=== PATIENT | female | born 1980 | race Caucasian/White ===

== ENCOUNTER 2024-02-16 17:57 | Inpatient (IN) | payer BC, SELFPAY ==
[2024-02-16 11:54] VITALS: BP 137/81
[2024-02-16 12:19] LABS: % Basophils 0.5 % (0-2); % Eosinophils 0.4 % (0-6); % Lymphocytes 8.8 % (20.5-51.1); % Monocytes 4.4 % (1.7-9.3); % Neutrophils 84.9 % (42.2-75.2); Absolute Basophils 0.1 10^3/uL (0-0.2); Absolute Eosinophils 0.1 10^3/uL (0-0.7); Absolute Immature Granulocytes 0.1 10^3/uL (0-0.05); Absolute Monocytes 0.5 10^3/uL (0.1-0.6); Absolute Neutrophils 9.9 10^3/uL (1.4-6.5); Hematocrit 43.5 % (37.0-47.0); Hemoglobin 14.9 g/dL (12.0-16.0); Mean Corp Hgb Conc. 34.3 g/dL (33.0-37.0); Mean Corpuscular Hgb 29.3 pg (27.0-31.0); Mean Corpuscular Volume 85.5 fL (81.0-99.0); Nucleated Red Blood Cells % 0 %; Platelet Count 214 10^3/uL (130-400); Red Blood Cell Count 5.09 10^6/uL (4.20-5.40); Red Cell Dist. Width 13.1 % (11.5-14.5); White Blood Cell Count 11.7 10^3/uL (4.8-10.8)
[2024-02-16 12:29] LABS: HCG, Serum Qualitative Screen Negative
[2024-02-16 12:33] LABS: ALT (SGPT) 23 U/L (0-35); AST (SGOT) 23 U/L (14-36); Albumin 4.2 g/dl (3.5-5.0); Alkaline Phosphatase 60 U/L (38-126); Blood Urea Nitrogen 11 mg/dl (7-17); Calcium 8.7 mg/dl (8.4-10.2); Carbon Dioxide 26 mmol/L (22-30); Chloride 97 mmol/L (98-107); Glucose 115 mg/dl (70-99); Lipase 36 U/L (23-300); Potassium 3.5 mmol/L (3.5-5.1); Sodium 133 mmol/L (135-145); Total Bilirubin 0.8 mg/dl (0.2-1.3); eGFR > 60.00
--- NOTE | 2024-02-16 14:17 | EDRN ---
Edgardo GAUTHIER currently at the pts bedside
--- NOTE | 2024-02-16 14:22 | ED.GENMED ---
History of Present Illness
General
Chief Complaint: Rectal Bleeding
Time Seen by Provider: 02/16/24 14:15
History of Present Illness
History of Present Illness:
43-year-old female presents to the emergency department for evaluation of nausea, vomiting, and diarrhea for the past 3 days. States that over the past 24 hours her diarrhea has been essentially 'all blood' estimates that she is going approximately
every 30 to 45 minutes. Feels dizzy and lightheaded as well. No fevers or chills at this point. Has abdominal pain prior to bowel movements but no current pain. No prior abdominal surgery. No ill contacts at home. No bleeding issues or blood
thinner use
Past History
Past History
ED Past Medical History: HTN, Hypercholesterolemia and Other (PCOS)
ED Past Surgical History: None
Patient has exhibited threatening behavior?: No
PSI?: No
Review of Systems
Review of Systems
Allergies reviewed?: Yes
All Other Systems: ROS reviewed and negative except as documented in HPI and ROS
Phy Exam
Physical Exam
Physical Exam:
GEN: Well appearing, NAD, WDWN
HEENT: Oral mucosa moist, no scleral icterus
Cardiac: Tachycardic, regular
Lung: No respiratory distress, no tachypnea
Abdomen: Soft, grossly nontender
MSK: No gross deformity or injuries
Skin: Good color, no pallor or jaundice, no rashes
Neuro: AO x3, moves all extremities freely
Psych: Calm, cooperative
Course
Orders/Labs/Results
Orders:
Orders
02/16/24 12:06
Test Result ONCE
02/16/24 12:10
Type And Crossmatch [Type+Screen] Urgent
Complete Blood Count/With Diff Urgent
Comprehensive Metabolic Panel Urgent
HCG, Serum Qualitative Screen Urgent
Lipase Urgent
02/16/24 14:21
CT Abd/pelvis Angio W/wo Iv Urgent
Comment:
Reason For Exam: rectal bleeding
02/16/24 14:22
0.9% Sodium Chloride 1000 ml [Nss] 1,000 ml IV BOLUS
02/16/24 Dinner
NPO
Allow oral meds: Yes
Allow clear liquids: Sips of Clears
02/16/24 15:02
ABO2 Urgent
BBK Wristband Number:
Associate notified that ABO2 has been ordered: [id number]
Date: 02/16/24
Time: 12:23
Juvenile Justice Specialist ID: [id number]
C DIFF [C difficile Antigen & Toxins] Urgent
JERRY Source: Feces/Stool
Specimen Description:
Date Specimen was Collected: 02/16/24
Time Specimen was Collected: 15:01
Stool Culture Urgent
JERRY Source: Feces/Stool
Specimen Description:
Date Specimen was Collected: 02/16/24
Time Specimen was Collected: 15:01
02/16/24 17:31
Admit/Transfer Patient As Directed
Co-Sign Provider:
Level of Care: Inpatient admission
Assign to:: Medical/Surgical
Physician / Group: phill
Diagnosis: acute infectious colitis
Reason for Hospitalization: acute infectious colitis
Expected length of stay greater than two midnights?: Yes
ELOS- Estimated Length of Stay in days: 2
I certify the patient meets the requirements for IP care: Yes
PRN Pain Medication Management As Directed
May give lesser potent ordered pain med per pt: Yes
preference::
Protocol:: Medication orders for pain may be administered in a
manner that supports deferring to patient preference
when the pt is:
- Requesting an ordered lesser potent pain medication.
Least to most potent pain medications are defined
as: acetaminophen < NSAID < tramadol < opioids
(morphine, oxycodone, hydromorphone).
- Requesting a lesser dose of the same medication IF
ORDERED.
- Requesting a less intrusive route of administration
if both routes are prescribed by the provider (PO <
IV).
02/16/24 17:32
Code Status As Directed
Resuscitation Status: Full Code
02/16/24 18:00
Flush (0.9% Sodium Chloride) [Flush (Nss)] See Dose Instructions IV PER PROTOCOL
Piperacillin/Tazo 3.375 Gram [Zosyn] 3.375 gram in 50 ml IV Q6H
02/16/24 18:32
0.9% Sodium Chloride 1000 ml [Nss] 1,000 ml IV 100 mls/hr
Ondansetron Injectable [Zofran] 4 mg IV Q6HPRN PRN
02/16/24 18:32
Activity As Directed
Activity Level: As Tolerated
Pneumatic Compression Sleeves As Directed
Type: Knee high
Vital Signs As Directed
Frequency: Per unit guidelines
DX Deep Vein Thrombosis Video Routine
02/16/24 18:39
Albuterol [ProAIR HFA INHALER] 2 puff INH R Q6HPRN PRN
02/17/24 06:00
Complete Blood Count/With Diff IN AM
Comprehensive Metabolic Panel IN AM
02/17/24 08:00
Escitalopram Oxalate [Lexapro] 20 mg PO DAILY
Loratadine [Claritin] 10 mg PO DAILY
Abnormal Lab Results
02/16/24
12:10
WBC 11.7 H 10^3/uL
(4.8-10.8)
Abs Immat Gran (auto) 0.1 H 10^3/uL
(0-0.05)
Absolute Neuts (auto) 9.9 H 10^3/uL
(1.4-6.5)
Absolute Lymphs (auto) 1.0 L 10^3/uL
(1.2-3.4)
Immature Gran % 1.0 H %
(0-0.5)
Neutrophils % 84.9 H %
(42.2-75.2)
Lymphocytes % 8.8 L %
(20.5-51.1)
Sodium 133 L mmol/L
(135-145)
Chloride 97 L mmol/L
(98-107)
Glucose 115 H mg/dl
(70-99)
02/16/24 12:10
02/16/24 12:10
Vital Signs
Initial and Last Documented VS:
Initial Vital Signs
Temp Pulse Resp BP Pulse Ox
98 F 108 18 137/81 96
02/16/24 11:54 02/16/24 11:54 02/16/24 11:54 02/16/24 11:54 02/16/24 11:54
Last Documented Vital Signs
Temp Pulse Resp BP Pulse Ox
98.5 F 84 19 139/84 94
02/16/24 18:43 02/16/24 18:43 02/16/24 18:43 02/16/24 18:43 02/16/24 18:43
MDM/Problems Addressed
MDM/Problems Addressed:
Although the patient is hemodynamically stable and the frequency of her hemorrhagic diarrhea is concerning she may decompensate overnight thus we will admit for further evaluation. Antibiotics not given as we are waiting for stool specimens
*Critical Care Note
Total Time (30-74mins, 75-104mins- exclusive of procedures): Not Applicable
ED Attending Note
-
Portions of this chart may have been created with voice recognition software.� Occasional wrong word or��sound alike� substitutions may have occurred due to the inherent limitations of voice recognition software.
Discharge Plan
Departure
Patient Disposition: Admit
Date of Disposition: 02/16/24
Time of Disposition: 17:08
Presentation/result/management discussed w/ accepting MD/DO: Hospitalist
Discharge Problem:
Acute hemorrhagic colitis
Interventions
Interventions:
*Risk Screen - Suicide Last Done: 02/16/24 12:03
*General Assessment Last Done: 02/16/24 12:03
*Neglect/Abuse Screening Last Done: 02/16/24 12:03
ED- Fall Risk Assessment Last Done: 02/16/24 15:56
*ED COVID-19 Vaccine History Last Done: 02/16/24 19:59
*Nursing Disposition Last Done: 02/16/24 18:06
BN-Vpnhix-Wqfxrzgaqm Assessment Last Done: 02/16/24 15:56
ED- Cardiac Assessment Last Done: 02/16/24 15:56
ED- Pulmonary Assessment Last Done: 02/16/24 15:56
Discharge Date and Time
Discharge Date/Time: 02/16/24 18:22
[2024-02-16 15:12] VITALS: BP 139/87; BMI 46.6
[2024-02-16] MEDS: NSS 1000 IV ×2 (15:30→20:16)
[2024-02-16 15:56] VITALS: BP 136/72
--- NOTE | 2024-02-16 17:28 | EDRN ---
hospitalist currently at the pts bedside
--- NOTE | 2024-02-16 17:33 | HPS.HSE ---
Family Physician
-
Family Physician: Ara Payne PA-C
Chief Complaint
-
diarrhea, vomiting
History of Present Illness
43-year-old female past medical history of hypertension, hypercholesteremia, PCOS, presenting with nausea and vomiting and diarrhea and abdominal pain for the past day. Later in the day yesterday diarrhea has become all blood and she is having such
episodes every 30 to 45 minutes. Feels dizzy and lightheadedness. Denies fevers or chills. She has abdominal pain prior to bowel movements but currently no pain. No sick contacts. Denies eating outside food or travel. Does not use any blood
thinners and denies history of bleeding previously.
Drinks alcohol occasionally. Denies smoking.
Medical History
Past Medical History
Past Medical History: Reports Other ( hypertension, hypercholesteremia, PCOS)
Past Surgical History: Reports None
Social History
Tobacco: Non-smoker
Alcohol: Occasional
Drug: None
Family History
Family History: Not pertinent
Allergies / Home Medications
Allergies reflects when Allergies were last updated in [facility].
Home Medications with original date entered in [facility]
Allergy/Medication List:
Allergies
Allergy/AdvReac Type Severity Reaction Status Date / Time
shellfish derived Allergy Hives Verified 02/16/24 12:05
Home Medications
labetalol 100 mg tablet 200 mg PO BID 09/11/21
albuterol sulfate 90 mcg/actuation breath activated powder inhaler,sensor (Proair Digihaler) 2 inh inhalation R Q6HPRN PRN sob 02/16/24
escitalopram oxalate 20 mg tablet 20 mg PO DAILY 02/16/24
loratadine 10 mg tablet 10 mg PO DAILY 02/16/24
Review of Systems
-
History Source: Patient
A 12 point ROS was completed and negative except as noted: Yes
Constitutional: Reports No Symptoms
EENT: Reports No Symptoms
Respiratory: Reports No Symptoms
Cardiac: Reports No Symptoms
Abdomen/GI: Reports See HPI
: Reports No Symptoms
Musculoskeletal: Reports No Symptoms
Skin: Reports No Symptoms
Neurological: Reports No Symptoms
Endocrine: Reports No Symptoms
Hematologic/Lymphatic: Reports No Symptoms
Psych: Reports No Symptoms
Physical Exam
Vital Signs
Vital Signs
Temp Pulse Resp BP Pulse Ox
97.6 F 82 16 136/72 98
02/16/24 15:56 02/16/24 15:56 02/16/24 15:56 02/16/24 15:56 02/16/24 15:56
Physical Exam
General: Well Developed, Well Nourished and No Apparent Distress
HEENT: NormoCephalic, Moist mucous membranes and Atraumatic
Respiratory: Clear
Cardiac: S1/S2 and Regular Rhythm; No Murmur or Rub
GI: Soft, Non Distended, Normal Bowel Sounds and Tender; No Organomegaly
Rectal: Deferred by Provider
Musculoskeletal: No Clubbing, No Cyanosis and No Edema
Skin: No Rash
Neuro: Nonfocal/grossly intact
Laboratory Results
-
02/16/24 12:10
02/16/24 12:10
Laboratory Results
Total Bilirubin 0.8 mg/dl (0.2-1.3) 02/16/24 12:10
AST 23 U/L (14-36) 02/16/24 12:10
ALT 23 U/L (0-35) 02/16/24 12:10
Alkaline Phosphatase 60 U/L (38-126) 02/16/24 12:10
Lipase 36 U/L (23-300) 02/16/24 12:10
Data Reviewed
-
Lab Data: Labs Reviewed by me
Old Records: Reviewed
Impression/Plan
-
IMPRESSION:
PLAN:
# Sepsis (leukocytosis, tachycardia ) secondary to acute infectious colitis with hematochezia
-Hemoglobin 14
-CT abdomen shows long segment colitis of sigmoid colon
-N.p.o.
-IV fluids
-C. difficile negative
-Stool cultures pending
-Zosyn
Essential hypertension
-Hold labetalol
Hypercholesterolemia
PCOS
Anxiety/depression
-Continue Lexapro
Full code
DVT prophylaxis�SCDs
N.p.o.
[2024-02-16 18:43] VITALS: BP 139/84; BMI 45.9
[2024-02-16] MEDS: ZOSYN 50 IV (20:16)
[2024-02-16] MEDS: ZOFRAN 4 MG IV (20:20)
--- NOTE | 2024-02-16 20:30 | PTCARENOTE ---
Pt. received in handoff from day shift RN. This RN completed admission and assessment. Zosyn started and IVF running. PRN zofran dose give. Pt. denies having any pain but continues to have diarrhea. Pt. states no further needs at this time. Care
ongoing.
[2024-02-16 22:26] VITALS: PULSE 95
[2024-02-16 23:00] VITALS: BP 134/75
[2024-02-17] MEDS: ZOSYN 50 IV ×5 (00:09→23:22)
[2024-02-17 06:26] LABS: ALT (SGPT) 23 U/L (0-35); AST (SGOT) 24 U/L (14-36); Albumin 3.3 g/dl (3.5-5.0); Alkaline Phosphatase 48 U/L (38-126); Blood Urea Nitrogen 11 mg/dl (7-17); Carbon Dioxide 23 mmol/L (22-30); Chloride 100 mmol/L (98-107); Estimated Creatinine Clearance > 125 ml/min; Glucose 116 mg/dl (70-99); Hematocrit 37.8 % (37.0-47.0); Hemoglobin 12.5 g/dL (12.0-16.0); Mean Corp Hgb Conc. 33.1 g/dL (33.0-37.0); Mean Corpuscular Hgb 28.3 pg (27.0-31.0); Mean Corpuscular Volume 85.5 fL (81.0-99.0); Mean Platelet Volume 9.5 fL (7.4-10.4); Platelet Count 177 10^3/uL (130-400); Potassium 3.2 mmol/L (3.5-5.1); Red Blood Cell Count 4.42 10^6/uL (4.20-5.40); Sodium 134 mmol/L (135-145); Total Bilirubin 0.6 mg/dl (0.2-1.3); Total Protein 5.9 g/dl (6.3-8.2); White Blood Cell Count 6.1 10^3/uL (4.8-10.8); eGFR > 60.00
--- NOTE | 2024-02-17 06:41 | W.PN.HOSP.TC ---
Today's Communication/Plan
-
IVF support
diet advanced to clear liquid
monitor H&H, electrolytes
bedside commode
Assessment / Plan
Assessment / Plan
Physical Exam
General: Well Developed, Well Nourished and No Apparent Distress
HEENT: NormoCephalic, Moist mucous membranes and Atraumatic
Respiratory: Clear
Cardiac: S1/S2 and Regular Rhythm; No Murmur or Rub
GI: Soft, Non Distended, Normal Bowel Sounds and Tender; No Organomegaly
Musculoskeletal: No Clubbing, No Cyanosis and No Edema
Skin: No Rash
Neuro: Nonfocal/grossly intact
43F HTN, HLD, PCOS, p/w nausea/vomiting/diarrhea/abd pain x1 day. Intermittently noted blood in stools. Dizzy and Lightheadedness. Denied fevers or chills. Abdominal pain prior to bowel movements but currently no pain. No sick contacts. Denies
eating outside food or travel. Does not use any blood thinners and denies history of bleeding previously. Drinks alcohol occasionally. Denies smoking.
# Sepsis (leukocytosis, tachycardia) secondary to acute infectious colitis with hematochezia
-No significant anemia, cont monitoring H&H
-CT abdomen notes long segment colitis of sigmoid colon
-NPO diet advanced to clear liquid
-cont IV fluids for now
-C. difficile negative
-Stool cultures pending
-Zosyn
Essential hypertension
-Hold home labetalol, bp relatively well controlled at this time without
Hypercholesterolemia
PCOS
Anxiety/depression
-Continue Lexapro
Bilateral Adrenal nodules 1.9 cm right 0.9 cm left indeterminate possible lipid poor adenomas
-outpt endocrine follow up recommended
Hypokalemia
-monitor and replete as necessary
Full code
DVT prophylaxis�SCDs
Clear Liquid Diet
I spent a total of 50 minutes with the patient or on the floor. More than 50% of this time involved counseling and coordination of care.
Anticipated Discharge: 24 - 48 hours
Subjective/Interval History
-
Date of Service: February 17, 2024
Diarrhea persists though blood in stools seems to have resolved.
Objective Data
-
Labs:
Laboratory Results
02/17/24
05:43
WBC 6.1
Hgb 12.5
Hct 37.8
Plt Count 177
Sodium 134 L
Potassium 3.2 L
Chloride 100
Carbon Dioxide 23
BUN 11
Creatinine 0.6
Glucose 116 H
Calcium 8.0 L
Total Bilirubin 0.6
AST 24
ALT 23
Alkaline Phosphatase 48
Vital Signs:
Vital Signs
Temp Pulse Resp BP Pulse Ox
97.9 F 101 14 134/75 97
02/16/24 23:00 02/16/24 23:00 02/16/24 23:00 02/16/24 23:00 02/16/24 23:00
[2024-02-17 07:00] VITALS: BP 121/71
[2024-02-17 08:36] LABS: Absolute Neutrophils -Man Diff 4.3 10^3/uL (1.4-6.5); Band Neutrophils 12 % (0-3); Lymphocytes 20 % (20-51); Monocytes 8 % (2-9); Normal RBC Morphology Yes; Platelets Checked Yes; Segmented Neutrophils 60 % (42-75); Total Cells Counted 100
[2024-02-17] MEDS: CLARITIN 10 MG PO (08:39)
[2024-02-17] MEDS: KCL 40 MEQ PO (08:39)
[2024-02-17] MEDS: LEXAPRO 20 MG PO (08:40)
[2024-02-17] MEDS: LR 1000 IV (09:10)
[2024-02-17] MEDS: NSS IV (09:31)
[2024-02-17 13:11] LABS: Phosphorus 3.1 mg/dl (2.5-4.5)
[2024-02-17 15:00] VITALS: BP 132/84
--- NOTE | 2024-02-17 16:24 | CM ---
Alert awake oriented patient who lives with her Ronny and son Zaid 1.5 yo who lives in 2 story home with 41 step to enter and 20 steps to bed and bathroom steps to enter.She is independent in driving and in all activities of daily
living.Offered VN she declined.
No adaptive devices
Never had VN/SNF
Pharmacy [facility] [place]
PCP Dr Payne
PLAN Home no needs
--- NOTE | 2024-02-17 16:29 | CM ---
Alert awake oriented patient who lives with her Ronny and son Zaid 1.5 yo who lives in 2 story home with 1 step to enter and 20 steps to bed and bathroom steps to enter.She is independent in driving and in all activities of daily
living.Offered VN she declined.
No adaptive devices
Never had VN/SNF
Pharmacy [facility]
PCP Dr Payne
PLAN Home no needs
[2024-02-17 23:30] VITALS: BP 139/88
[2024-02-18] MEDS: LR 1000 IV ×2 (01:55→13:13)
[2024-02-18] MEDS: ZOSYN 50 IV ×2 (05:41→11:54)
--- NOTE | 2024-02-18 06:33 | W.PN.HOSP.TC ---
Today's Communication/Plan
-
IV abx narrowed to ceftriaxone
replete K
Cont IVF support, LR switched to NS with potassium added
Assessment / Plan
Assessment / Plan
Physical Exam
General: Well Developed, Well Nourished and No Apparent Distress
HEENT: NormoCephalic, Moist mucous membranes and Atraumatic
Respiratory: Clear
Cardiac: S1/S2 and Regular Rhythm; No Murmur or Rub
GI: Soft, Non Distended, Normal Bowel Sounds and Tender; No Organomegaly
Musculoskeletal: No Clubbing, No Cyanosis and No Edema
Skin: No Rash
Neuro: AOx3
43F HTN, HLD, PCOS, p/w nausea/vomiting/diarrhea/abd pain x1 day. Intermittently noted blood in stools. Dizzy and Lightheadedness. Denied fevers or chills. Abdominal pain prior to bowel movements but currently no pain. No sick contacts. Denies
eating outside food or travel. Does not use any blood thinners and denies history of bleeding previously. Drinks alcohol occasionally. Denies smoking.
# Sepsis (leukocytosis, tachycardia) secondary to acute infectious colitis with hematochezia
-No significant anemia, cont monitoring H&H
-CT abdomen notes long segment colitis of sigmoid colon
-NPO diet advanced to clear liquid
-cont IV fluids for now
-C. difficile negative
-Stool cultures appreciated Salmonella
-Zosyn narrowed to Ceftriaxone
Essential hypertension
-Hold home labetalol, bp relatively well controlled at this time without
Hypercholesterolemia
PCOS
Anxiety/depression
-Continue Lexapro
Bilateral Adrenal nodules 1.9 cm right 0.9 cm left indeterminate possible lipid poor adenomas
-outpt endocrine follow up recommended, to be discussed with patient.
Hypokalemia
-monitor and replete as necessary
-IVF switched from LR to NS with 20 mEQ potassium added
Full code
DVT prophylaxis�SCDs
Clear Liquid Diet
I spent a total of 50 minutes with the patient or on the floor. More than 50% of this time involved counseling and coordination of care.
Anticipated Discharge: 24 - 48 hours
Subjective/Interval History
-
Date of Service: February 18, 2024
No acute distress. Reports improvement in diarrhea overnight but not resolved. Some blood noted in stools. H&H and BP remain stable.
Objective Data
-
Labs:
Laboratory Results
02/18/24
06:00
WBC Pending
Hgb Pending
Hct Pending
Plt Count Pending
Sodium Pending
Potassium Pending
Chloride Pending
Carbon Dioxide Pending
BUN Pending
Creatinine Pending
Glucose Pending
Calcium Pending
Vital Signs:
Vital Signs
Temp Pulse Resp BP Pulse Ox
97.7 F 93 18 139/88 95
02/17/24 23:30 02/17/24 23:30 02/17/24 23:30 02/17/24 23:30 02/17/24 23:30
I&O
02/16/24 02/17/24 02/18/24
06:59 06:59 06:59
Intake Total 960 / 960 2039
Balance 960 / 960 2039
[2024-02-18 07:10] VITALS: BP 127/84
[2024-02-18] MEDS: LEXAPRO 20 MG PO (08:36)
[2024-02-18] MEDS: CLARITIN 10 MG PO (08:36)
[2024-02-18 09:17] LABS: Hematocrit 36.3 % (37.0-47.0); Mean Corp Hgb Conc. 33.1 g/dL (33.0-37.0); Mean Corpuscular Volume 87.7 fL (81.0-99.0); Mean Platelet Volume 9.4 fL (7.4-10.4); Platelet Count 192 10^3/uL (130-400); Red Blood Cell Count 4.14 10^6/uL (4.20-5.40); White Blood Cell Count 5.6 10^3/uL (4.8-10.8)
[2024-02-18 09:56] LABS: Blood Urea Nitrogen 9 mg/dl (7-17); Calcium 8.2 mg/dl (8.4-10.2); Carbon Dioxide 25 mmol/L (22-30); Chloride 100 mmol/L (98-107); Estimated Creatinine Clearance > 125 ml/min; Glucose 100 mg/dl (70-99); Magnesium 2.2 mg/dl (1.6-2.3); Phosphorus 3.8 mg/dl (2.5-4.5); Potassium 3.4 mmol/L (3.5-5.1); Sodium 136 mmol/L (135-145); eGFR > 60.00
[2024-02-18 12:39] LABS: Hematocrit 36.8 % (37.0-47.0); Hemoglobin 12.2 g/dL (12.0-16.0)
[2024-02-18] MEDS: LR IV (13:16)
[2024-02-18 15:10] VITALS: BP 128/83
[2024-02-18] MEDS: KCL 40 MEQ PO (16:57)
[2024-02-18] MEDS: NSS with KCL 20 MEQ 1000 IV (17:04)
[2024-02-18] MEDS: ROCEPHIN 2000 MG IV (17:07)
[2024-02-18] MEDS: STERILE WATER FOR INJECTION 20 ML IV (17:07)
[2024-02-18 23:00] VITALS: BP 120/81
[2024-02-19] MEDS: NSS with KCL 20 MEQ 1000 IV (03:21)
[2024-02-19 07:30] VITALS: BP 136/79
[2024-02-19] MEDS: CLARITIN 10 MG PO (07:52)
[2024-02-19] MEDS: LEXAPRO 20 MG PO (07:52)
[2024-02-19 08:02] LABS: Hemoglobin 11.5 g/dL (12.0-16.0); Mean Corp Hgb Conc. 32.9 g/dL (33.0-37.0); Mean Corpuscular Hgb 28.7 pg (27.0-31.0); Mean Corpuscular Volume 87.3 fL (81.0-99.0); Mean Platelet Volume 9.3 fL (7.4-10.4); Platelet Count 218 10^3/uL (130-400); Red Blood Cell Count 4.01 10^6/uL (4.20-5.40); Red Cell Dist. Width 12.8 % (11.5-14.5); White Blood Cell Count 6.6 10^3/uL (4.8-10.8)
[2024-02-19 08:32] LABS: Blood Urea Nitrogen 6 mg/dl (7-17); Calcium 8.2 mg/dl (8.4-10.2); Carbon Dioxide 26 mmol/L (22-30); Chloride 104 mmol/L (98-107); Estimated Creatinine Clearance > 125 ml/min; Glucose 99 mg/dl (70-99); Magnesium 2.2 mg/dl (1.6-2.3); Phosphorus 3.6 mg/dl (2.5-4.5); Potassium 4.1 mmol/L (3.5-5.1); Sodium 139 mmol/L (135-145); eGFR > 60.00
--- NOTE | 2024-02-19 12:34 | W.PN.HOSP.TC ---
Today's Communication/Plan
-
Advance to LR diet
Stop IVF
If tolerating discharge tomorrow
Assessment / Plan
Assessment / Plan
43F HTN, HLD, PCOS, p/w nausea/vomiting/diarrhea/abd pain x1 day. Intermittently noted blood in stools. Dizzy and Lightheadedness. Denied fevers or chills. Abdominal pain prior to bowel movements but currently no pain. No sick contacts. Denies
eating outside food or travel. Does not use any blood thinners and denies history of bleeding previously. Drinks alcohol occasionally. Denies smoking.
EKG with normal QTc
Chest: CTA B/L
Abdomen: Soft, NT / Bowel sounds present
Extremities: No edema
# Sepsis (leukocytosis, tachycardia) secondary to acute infectious colitis with hematochezia
-CT abdomen notes long segment colitis of sigmoid colon
-Advance diet
-C. difficile negative
-Stool cultures with Salmonella
-Zosyn narrowed to Ceftriaxone, change to Cipro
#Essential hypertension-Hold home labetalol, bp relatively well controlled at this time without
# Hypokalemia-resolved
# PCOS
# Anxiety/depression-Continue Lexapro
# Hepatic steatosis per CT scan
# Cholelithiasis
# Bilateral Adrenal nodules 1.9 cm right 0.9 cm left indeterminate possible lipid poor adenomas-outpt follow up recommended, to be discussed with patient.
# Full code
# DVT prophylaxis�SCDs
Anticipated Discharge: Within 24 hours
Subjective/Interval History
-
Date of Service: February 19, 2024
Objective Data
-
Labs:
Laboratory Results
02/19/24 02/19/24
07:21 07:22
WBC 6.6
Hgb 11.5 L
Hct 35.0 L
Plt Count 218
Sodium 139
Potassium 4.1
Chloride 104
Carbon Dioxide 26
BUN 6 L
Creatinine 0.5 L
Glucose 99
Calcium 8.2 L
Vital Signs:
Vital Signs
Temp Pulse Resp BP Pulse Ox
97.7 F 84 16 136/79 96
02/19/24 07:30 02/19/24 07:30 02/19/24 07:30 02/19/24 07:30 02/19/24 07:30
I&O
02/18/24 02/19/24 02/20/24
06:59 06:59 06:59
Intake Total 2039
Balance 2039
[2024-02-19 15:30] VITALS: BP 138/83
[2024-02-19] MEDS: CIPRO 500 MG PO (20:38)
[2024-02-19 23:33] VITALS: BP 148/85
[2024-02-20 07:00] VITALS: BP 138/83
[2024-02-20] MEDS: CLARITIN 10 MG PO (08:13)
[2024-02-20] MEDS: CIPRO 500 MG PO (08:13)
[2024-02-20] MEDS: LEXAPRO 20 MG PO (08:13)
[2024-02-20 09:04] LABS: Blood Urea Nitrogen 10 mg/dl (7-17); Calcium 8.7 mg/dl (8.4-10.2); Carbon Dioxide 26 mmol/L (22-30); Chloride 102 mmol/L (98-107); Estimated Creatinine Clearance > 125 ml/min; Glucose 111 mg/dl (70-99); Potassium 4.1 mmol/L (3.5-5.1); Sodium 138 mmol/L (135-145); eGFR > 60.00
--- NOTE | 2024-02-20 12:06 | W.PN.HOSP.TC ---
Today's Communication/Plan
-
Discharge
Assessment / Plan
Assessment / Plan
43F HTN, HLD, PCOS, p/w nausea/vomiting/diarrhea/abd pain x1 day. Intermittently noted blood in stools. Dizzy and Lightheadedness. Denied fevers or chills. Abdominal pain prior to bowel movements but currently no pain. No sick contacts. Denies
eating outside food or travel. Does not use any blood thinners and denies history of bleeding previously. Drinks alcohol occasionally. Denies smoking.
EKG with normal QTc
Chest: CTA B/L
Abdomen: Soft, NT / Bowel sounds present
Extremities: No edema
# Sepsis (leukocytosis, tachycardia) secondary to acute infectious colitis with hematochezia
-CT abdomen notes long segment colitis of sigmoid colon
-Advance diet
-C. difficile negative
-Stool cultures with Salmonella
-Zosyn narrowed to Ceftriaxone, changed to Cipro
-No Diarrhea now
#Essential hypertension-Restart labetalol
# Hypokalemia-resolved
# PCOS
# Anxiety/depression-Continue Lexapro
# Hepatic steatosis per CT scan
# Cholelithiasis
# Bilateral Adrenal nodules 1.9 cm right 0.9 cm left indeterminate possible lipid poor adenomas-outpt follow up recommended, to be discussed with patient.
# Full code
# DVT prophylaxis�SCDs
Patient to follow-up with endocrine as outpatient if hormones are elevated
D/W Family at bed side
Anticipated Discharge: Today
Subjective/Interval History
-
Date of Service: February 20, 2024
Objective Data
-
Labs:
Laboratory Results
02/20/24
07:31
Sodium 138
Potassium 4.1
Chloride 102
Carbon Dioxide 26
BUN 10
Creatinine 0.6
Glucose 111 H
Calcium 8.7
Vital Signs:
Vital Signs
Temp Pulse Resp BP Pulse Ox
98.2 F 83 16 138/83 97
02/20/24 07:00 02/20/24 07:00 02/20/24 07:00 02/20/24 07:00 02/20/24 07:00
I&O
02/19/24 02/20/24 02/21/24
06:59 06:59 06:59
Intake Total 2039 1440 / 1440
Balance 2039 1440 / 1440
--- NOTE | 2024-02-20 12:11 | W.DS.TRANS ---
Addendum entered and electronically signed by Alana Russ MD 02/20/24 17:23:
Dictation- [id number]
Original Note:
DC Summary - Associate Merchant
-
Discharge Instructions:
Discharge Diagnosis/Procedures Salmonella infection with colitis
Hypertension
Low potassium
Anxiety and depression
Gallstones
Bilateral adrenal nodules
Diet Low Residue
Activity As tolerated
Driving Restrictions As prior to admission
Blood Work Cosyntropin test, MRI of the adrenal glands,
plasma normetanephrine and free metanephrine,
plasma aldosterone to renin ratio
Others Tests Urine free metanephrines
Instructions:
Stand-Alone Forms:
Changes to Home Medications: Yes
Discharge Medications:
DC Medications w/original date entered in [employer]
labetalol 100 mg tablet 200 mg PO BID Blood Pressure 09/11/21
albuterol sulfate 90 mcg/actuation breath activated powder inhaler,sensor (Proair Digihaler) 2 inh inhalation R Q6HPRN PRN sob 02/16/24
escitalopram oxalate 20 mg tablet 20 mg PO DAILY Mental Health/Anxiety 02/16/24
loratadine 10 mg tablet 10 mg PO DAILY Allergies 02/16/24
ciprofloxacin HCl 500 mg tablet 500 mg PO BID Gastrointestinal issue #6 tabs 02/20/24
Home Medication Changes
new
Cipro
Pending Results: No
== END 2024-02-20 16:00 | disposition home or self-care (01) | DRG 872 ==
LOC: 3 WEST ACU 17:57
PROVIDERS: Emergency Medicine; Internal Medicine; ADMITTING PHYSICIAN Hospitalist; ATTENDING PHYSICIAN Hospitalist; EMERGENCY PHYSICIAN Emergency Medicine; FAMILY PHYSICIAN Physician Assistant Medical
DX: A41.9 Sepsis, unspecified organism (principal); A02.0 Salmonella enteritis; E27.8 Other specified disorders of adrenal gland; E28.2 Polycystic ovarian syndrome; E78.00 Pure hypercholesterolemia, unspecified; F32.A Depression, unspecified; F41.9 Anxiety disorder, unspecified; I10 Essential (primary) hypertension; E87.6 Hypokalemia; K80.20 Calculus of gallbladder without cholecystitis without obstruction
CPT/HCPCS: 74174; 80048; 80053; 83690; 83735; 84100; 84703; 85014; 85018; 85025; 85027; 86850; 86900; 86901; 87045; 87046; 87077; 87184; 87186; 87324; 87427; 87449; 93005; 94660; 96360; 99285; Q9967

== ENCOUNTER → 2024-05-15 12:53 | Outpatient (REF) | payer BC, SELFPAY | LOC: WDC 12:53 | PROVIDERS: ATTENDING PHYSICIAN Physician Assistant Medical | DX: Z12.31 Encounter for screening mammogram for malignant neoplasm of breast (principal) | CPT/HCPCS: 77063; 77067 ==

== ENCOUNTER → 2024-05-21 08:40 | Outpatient (REF) | payer BC, SELFPAY | LOC: WDC 08:40 | PROVIDERS: ATTENDING PHYSICIAN Physician Assistant Medical | DX: R92.8 Other abnormal and inconclusive findings on diagnostic imaging of breast (principal) | CPT/HCPCS: 76642 ==

== ENCOUNTER → 2024-06-04 13:28 | Outpatient (REF) | payer BC, SELFPAY | LOC: HWRAD 13:28 | PROVIDERS: ATTENDING PHYSICIAN Internal Medicine Endocrinology, Diabetes & Metabolism; FAMILY PHYSICIAN Physician Assistant Medical | DX: N91.1 Secondary amenorrhea (principal) | CPT/HCPCS: 76830; 76856 ==

== ENCOUNTER → 2024-07-30 08:25 | Outpatient (REF) | payer BC, SELFPAY | LOC: HWRAD 08:25 | PROVIDERS: ATTENDING PHYSICIAN Internal Medicine Endocrinology, Diabetes & Metabolism; FAMILY PHYSICIAN Physician Assistant Medical | DX: E27.8 Other specified disorders of adrenal gland (principal) | CPT/HCPCS: 74150 ==